=== PATIENT | male | born 1960 | race Caucasian/White ===

== ENCOUNTER → 2022-01-21 | Day surgery (SDC) | payer MEDICAID ==
[~2022-01-21] VITALS: Ht 165.1 cm; Wt 90.7 kg
[~2022-01-21] MED LIST: BUPIVACAINE HCL/PF 0.5% (5MG/ML) 10ML ONE; CLINDAMYCIN 900 MG PREMIX 50 ML IV ONE; FENTANYL CITRATE/PF 50MCG/ML 2ML VIAL ONE; HYDROCODONE/ACETAMINOPHEN 5/325MG TABLET PO PRN; LABETALOL 5MG/ML SYR 20 MG/4 ML SYRINGE IV PRN; LACTATED RINGERS 1,000 ML IV SCH; LIDOCAINE HCL 1% 20ML VIAL (Pyxis) INJ ONE; MEPERIDINE HCL/PF 25MG/ML CPJ IV PRN; MIDAZOLAM HCL 2 MG/2 ML VIAL ONE; ONDANSETRON HCL 4MG/2ML INJ IV PRN; PROPOFOL 200MG/20ML VIAL IV ONE; SKIN ADHESIVE 0.7 GM EA TOP ONE
[2022-01-21] MEDS: HYDROMORPHONE HCL/PF 2MG/ML CPJ IV PRN ×3 (12:40→12:50)
[2022-01-21 14:10] VITALS: BP 152/81
== END | disposition home or self-care (01) ==
LOC: OR 07:36
PROVIDERS: ATTEND Surgery
DX: K43.9 Ventral hernia without obstruction or gangrene (principal); Z79.899 Other long term (current) drug therapy; Z98.890 Other specified postprocedural states; Z88.8 Allergy status to other drugs, medicaments and biological substances; Z20.822 Contact with and (suspected) exposure to COVID-19
CPT/HCPCS: 49560; 49568; 82962; 87426; 88302; C1781; C9803; J1170; J2250; J2704; J3010; J3490

== ENCOUNTER 2024-06-04 14:58 | Emergency (ER) | payer MEDICAID ==
[~2024-06-04] VITALS: Ht 165.1 cm; Wt 85.2 kg
[2024-06-04 15:00] VITALS: O2SAT 96
[2024-06-04 15:11] VITALS: TEMP 36.6; O2SAT 97
[2024-06-04] MEDS ORDERED: SENNOSIDES/DOCUSATE SOD 8.6/50MG TABLET PO PRN (16:45)
[2024-06-04] MEDS: DOCUSATE SODIUM 100MG CAPSULE PO ONE (17:09)
[2024-06-04 17:18] LABS: BASOPHILS % 0.5 % (0.0-2.0); HEMATOCRIT. 45.5 % (42.0-52.0); HEMOGLOBIN. 15.1 g/dL (14.0-18.0); LYMPHOCYTES % 7.6 % (20.0-50.0); MEAN CORPUSCULAR HEMOGLOBIN 27.3 pg (28.0-32.0); MEAN CORPUSCULAR HGB CONC 33.2 g/dL (31.0-37.0); MEAN CORPUSCULAR VOLUME 82.4 fL (80.0-94.0); MEAN PLATELET VOLUME 8.8 fl (7.4-10.4); MONOCYTES % 7.2 % (2.0-8.0); NEUTROPHILS % 84.7 % (40.0-76.0); PLATELET 318 x1000/uL (130-400); RED BLOOD CELL COUNT 5.52 mill/uL (4.7-6.1); RED CELL DISTRIBUTION WIDTH 13.2 % (11.6-14.6); WHITE BLOOD COUNT 15.1 x1000/uL (4.5-11.0)
[2024-06-04 17:24] LABS: CARBON DIOXIDE 23 mEq/L (21-32); CHLORIDE 97 mEq/L (98-107); POTASSIUM 4.1 mEq/L (3.5-5.1); SODIUM 133 mEq/L (136-145)
[2024-06-04 17:25] LABS: CALCIUM 9.5 mg/dL (8.7-10.4)
[2024-06-04 17:30] LABS: UREA NITROGEN BLOOD 20 mg/dL (9-23)
[2024-06-04 17:31] LABS: ALANINE AMINOTRANSFERASE 19 IU/L (10-49); ALBUMIN 4.1 g/dL (3.2-4.8); ASPARTATE AMINOTRANSFERASE 16 IU/L (<34)
[2024-06-04 17:32] LABS: BILIRUBIN DIRECT 0.3 mg/dL (<=3.0); BILIRUBIN TOTAL 0.8 mg/dL (0.1-1.0); PROTEIN TOTAL 7.1 g/dL (6.0-8.3)
[2024-06-04 17:39] LABS: CREATININE 1.8 mg/dL (0.6-1.3); GLUCOSE 435 mg/dL (70-105); PROTHROMBIN TIME 10.4 sec (9.6-11.0)
[2024-06-04] MEDS: POLYETHYLENE GLYCOL 3350 (17GM) 1 DOSE PACK PO ONE (17:43)
[2024-06-04] MEDS ORDERED: KETOROLAC 30MG/ML VIAL IM ONE (17:45)
[2024-06-04 18:05] LABS: CLARITY URINE CLEAR (CLEAR); COLOR URINE YELLOW (YELLOW); GLUCOSE URINE 3+ (NEGATIVE); KETONES URINE NEGATIVE (NEGATIVE); LEUKOCYTE ESTERASE URINE NEGATIVE (NEGATIVE); NITRITE URINE NEGATIVE (NEGATIVE); OCCULT BLOOD URINE 1+ (NEGATIVE); PROTEIN URINE NEGATIVE (NEGATIVE); SPECIFIC GRAVITY URINE 1.024 (1.005-1.030); UROBILINOGEN URINE 0.2 E.U./dL (0.2-1.0)
[2024-06-04 19:08] LABS: BACTERIA URINE 1+; SQUAMOUS EPITHELIAL CELL URINE FEW /lpf (RARE/1+); WBC URINE 0-2 /hpf (0-2)
[2024-06-04] MEDS ORDERED: TAMS-11 MT (19:23)
[2024-06-04] MEDS: KETOROLAC 30MG/ML VIAL IM NR (19:38)
[2024-06-04 20:15] VITALS: BP 161/83; PULSE 72; RESP 16
[2024-06-04] MEDS: HYDROCODONE/ACETAMINOPHEN 5/325MG TABLET PO ONE (20:15)
== END 2024-06-04 21:01 | disposition home or self-care (01) ==
LOC: ER 14:58
DX: R33.8 Other retention of urine (principal); R73.9 Hyperglycemia, unspecified; N13.2 Hydronephrosis with renal and ureteral calculous obstruction; N17.9 Acute kidney failure, unspecified; I10 Essential (primary) hypertension; Z88.8 Allergy status to other drugs, medicaments and biological substances; Z90.49 Acquired absence of other specified parts of digestive tract
CPT/HCPCS: 80076; 80048; 81003; 83690; 85025; 85610; 36415; 74176; 96372; 99285; Z7610; J1885